=== PATIENT | female | born 1965 | race Asian ===

== ENCOUNTER 2019-02-05 08:08 | Day surgery (SDC) | payer OTHER ==
[2019-02-05] MEDS ORDERED: PROPOFOL 60 ML (12:49)
== END 2019-02-05 14:15 | disposition home or self-care (01) ==
LOC: GIL 08:08
DX: Z12.11 Encounter for screening for malignant neoplasm of colon (principal); D12.2 Benign neoplasm of ascending colon; D12.0 Benign neoplasm of cecum; D12.3 Benign neoplasm of transverse colon; D12.8 Benign neoplasm of rectum; I10 Essential (primary) hypertension
CPT/HCPCS: 45380; 88305